=== PATIENT | male | born 1970 | race American Indian/Alaskan Native ===

== ENCOUNTER 2021-11-03 00:18 | Emergency (ER) | payer OTHER ==
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
--- NOTE | 2021-11-03 01:21 | XRay Report ---
CHEST 1 VIEW 11/03/2021 12:57 AM INDICATION / CLINICAL INFORMATION: chest pain. COMPARISON: One view of the chest from 07/11/2019. FINDINGS: SUPPORT DEVICES: None. HEART / MEDIASTINUM: No significant abnormality. LUNGS / PLEURA: No significant pulmonary abnormality. No significant pleural effusion. No pneumothora x. ADDITIONAL FINDINGS: No significant additional findings. IMPRESSION: 1. No acute abnormality of the chest. Signer Name: Rosalio Rea MD Signed: 11/03/2021 1:17 AM Workstation Name: [id number]
[2021-11-03 04:09] VITALS: BP 151/88
== END 2021-11-03 02:50 ==
LOC: ED 00:18
DX: Z02.89 Encounter for other administrative examinations (principal); R07.89 Other chest pain; F17.200 Nicotine dependence, unspecified, uncomplicated
CPT/HCPCS: 71045; 99283